=== PATIENT | female | born 1965 | race Caucasian/White ===

== ENCOUNTER → 2020-11-06 16:00 | Outpatient (CLI) | payer OTHER, SELFPAY ==
[2020-11-10 08:08] LABS: QNTFERON TB Mitogen Value > 10.00 IU/mL (.); QNTFERON TB Nil Value 0 IU/mL (.); QNTFERON TB1+ Ag Value 0 IU/mL (.); QNTFERON TB2+ Ag Value 0 IU/mL (.)
[2020-11-10 10:49] LABS: QNTIFERON TB Positive Criteria Negative (Negative)
== END ==
PROVIDERS: PCP Internal Medicine; Referring Provider Internal Medicine Rheumatology; Visit Provider Internal Medicine Rheumatology
DX: M06.051 Rheumatoid arthritis without rheumatoid factor, right hip (principal); M18.11 Unilateral primary osteoarthritis of first carpometacarpal joint, right hand; M72.2 Plantar fascial fibromatosis; M17.0 Bilateral primary osteoarthritis of knee; M51.37 Other intervertebral disc degeneration, lumbosacral region; G43.809 Other migraine, not intractable, without status migrainosus; I10 Essential (primary) hypertension; M47.897 Other spondylosis, lumbosacral region; Z79.899 Other long term (current) drug therapy
CPT/HCPCS: 36415; 86480